=== PATIENT | female | born 1950 | race Caucasian/White ===

== ENCOUNTER 2017-07-25 16:16 | Emergency (ER) | payer BC ==
[~2017-07-25] VITALS: Ht 157.5 cm; Wt 72.6 kg
[2017-07-25] MEDS ORDERED: JARDIANCE25 MG PO (16:47)
[2017-07-25] MEDS ORDERED: GLUCOPHAGE1000 MG PO (16:47)
[2017-07-25] MEDS ORDERED: AVAPRO75 MG PO (16:47)
[2017-07-25] MEDS ORDERED: GLIPIZIDE ER10 MG PO (16:47)
[2017-07-25] MEDS ORDERED: TOPAMAX15 MG PO (16:48)
[2017-07-25] MEDS ORDERED: UNITHROID50 MCG PO (16:48)
[2017-07-25] MEDS ORDERED: NAPROXEN500 MG PO (19:09)
[2017-07-25] MEDS ORDERED: LIDODERM1 EACH TD (19:09)
== END 2017-07-25 19:31 | disposition home or self-care (01) ==
LOC: ED 16:16
DX: M25.512 Pain in left shoulder (principal); G89.29 Other chronic pain; I10 Essential (primary) hypertension; E11.9 Type 2 diabetes mellitus without complications; Z90.710 Acquired absence of both cervix and uterus; Z90.49 Acquired absence of other specified parts of digestive tract; Z98.890 Other specified postprocedural states; Z79.84 Long term (current) use of oral hypoglycemic drugs
CPT/HCPCS: 99283